=== PATIENT | female | born 1945 | race Caucasian/White ===

== ENCOUNTER 2022-10-29 09:01 | Outpatient (RCR) | payer MEDICARE, BC, SELFPAY ==
--- NOTE | 2022-10-29 12:04 | PT.OPEX ---
[facility] PT [facility] Out[facility] Eval Start: 10/29/22 09:41 Freq: Status: Active Protocol: Document 10/29/22 09:43 MAUDE (Rec: 10/29/22 11:59 MAUDE [id number]) E-signed By Howard Gonzales PT Physical Therapy Outpatient Evaluation Insurance Information Insurance Name Medicare B Medical Diagnosis Bilat. knee OA Treating Diagnosis Bilat. knee pain knee flexion contracture quad weakness Referring MD Samayoa Subjective Subjective Pt. reports progressive bilateral knee pain and dysfunction over the past couple of months. X-rays reveal significant OA, appropriate for TKA surgery, first on right, then on left in 6 months. She lives with her in one level [facility] without steps. She will be returning home following surgery with outpatient rehab in [place] planned. 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 PMH includes; diabetes, HTN, breast CA, and arthritis. Her goal is for full knee function without use of assistive device. 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 Strength 4/5 bilat. quad strength Balance & Gait Ambulation without assistive device with slowed gait and significant genu varus. Assessment Assessment/Impression Objectively, pt. demonstrates; slowed gait with genu varus present; 10-115 deg. of bilat. knee ROM with mild hamstring contracture; tightness of hamstrings and calves; 4/5 quad strength bilat; and core deconditioning. She would benefit from pre-op education of TKA process along with appropriate HEP instruction. Her right TKA surgery is scheduled for 11/12/22. She will have her post-op therapy in [place]. Primary Functional Limitations walking, kneeling, steps Plan of Care Rehabilitation Potential Excellent Physical Therapy Goals 1. Pt. will be indep. with HEP for self maintenance in 8 weeks. 2. Pt. will be able to walk without assistive device with little to no limp in 8 weeks. 3. Pt. will demonstrate improved quad and core strength in 8 weeks. 4. Pt. will demonstrate functional knee AROM to allow regular ADL's in 8 weeks. Coordination/Communication With Referral Source Treatment Plan/Direct Interventions Self-Care/Home Management, Therapeutic Activities, Therapeutic Exercises Frequency/Duration One visit then D/C at this clinic. Pt. will receive outpatient therapy following surgery in [place]. Patient Will Be Discharged From Therapy Independent w/HEP Evaluation Billing Complexity Low Certification Information Initial Certification Date 10/29/22 Ending Certification Date 10/30/22 Provider Signature Shows Agreement With POC & Medical Necessity Physician Signature & Date Requested Please Sign/Date Here Physician Comment/Change : Physician NPI Number #
== END 2023-02-26 23:59 | disposition home or self-care (01) ==
PROVIDERS: PCP Internal Medicine; Visit Provider Orthopaedic Surgery
DX: M17.0 Bilateral primary osteoarthritis of knee (principal); M25.562 Pain in left knee; M25.561 Pain in right knee; R53.1 Weakness; Z51.89 Encounter for other specified aftercare
CPT/HCPCS: 97110; 97161

== ENCOUNTER 2022-11-12 10:13 | Day surgery (SDC) | payer MEDICARE, BC, SELFPAY ==
[2022-11-12] VITALS (24 sets, daily range): BP systolic 105–171; BP diastolic 58–88; PULSE 54–79; RESP 14–20; TEMP 35.7–36.8; O2SAT 9–97; BMI 37.2
--- NOTE | 2022-11-12 | CRLHL7_ITS ---
For Patients: As a result of the Cures Act, medical imaging exams and procedure reports are released immediately into your electronic medical record. You may view this report before your referring provider. If you have questions, please contact your health care provider. INDICATION: Follow up right knee arthroplasty. TECHNIQUE: Two views of the right knee. COMPARISON : Pre-surgical images September 30, 2022. FINDINGS: New right total knee arthroplasty with patellar resurfacing. The components are adequately aligned and well seated. Air within the soft tissues and joint space related to the surgery. IMPRESSION: Right total knee arthroplasty. The components are adequately aligned and well seated. Dictated by Davis Goodman MD @ 11/13/2022 9:38:07 AM (Electronically Signed)
[2022-11-12] MEDS: SCOPOLAMINE 1 MG/3 DAY PATCH 1 PATCH TRANSDERMA (11:00)
[2022-11-12] MEDS: LACTATED RINGERS 1000 ML 1,000 ML 100 ML IV ×2 (11:30→12:28)
[2022-11-12] MEDS: SODIUM CHLORIDE 0.9 % (FLUSH) 10 ML SYRINGE IVF (11:30)
[2022-11-12] MEDS: CELECOXIB 200 MG CAPSULE PO (11:45)
[2022-11-12] MEDS: ACETAMINOPHEN 500 MG TABLET 1000 MG PO ×2 (11:45→18:05)
[2022-11-12] MEDS: MIDAZOLAM HCL 1 MG/ML inj IVP (11:58)
[2022-11-12] MEDS: fentaNYL 100 MCG/2 ML inj IVP (11:58)
--- NOTE | 2022-11-12 11:59 | SUR.PREOP ---
TIME?OUT:?1155 right knee PT/RN/MDA?VERIFICATION?OF?SURGICAL?SITE,?PROCEDURE,?AND?CONSENT OBTAINED?PRIOR?TO?INVASIVE?PROCEDURE.
[2022-11-12] MEDS: CEFAZOLIN 2 GM INJ IVP (12:10)
[2022-11-12] MEDS: TRANEXAMIC ACID 100 MG/ML INJ 1000 MG IV (12:15)
--- NOTE | 2022-11-12 13:44 | P.ORPRC_ITS ---
Procedure Note Date of procedure: 11/12/22 Procedure: PREOPERATIVE DIAGNOSIS: Right knee osteoarthritis POSTOPERATIVE DIAGNOSIS: Right knee osteoarthritis NAME OF OPERATION: Right total knee arthroplasty SURGEON: Myron Samayoa MD ELECTROLYSIST: ANGIE Tariq ANESTHESIA: Spinal ESTIMATED BLOOD LOSS: 0 mL COMPLICATIONS: None SPECIMENS: None DRAINS: None PREOPERATIVE ANTIBIOTICS: Ancef 2 grams, antibiotic impregnated cement IMPLANTS: 1. J&J Attune # 6 narrow posterior stabilized femur 2. # 5 fixed-bearing tibia with a 14 mm x 50 mm cemented stem 3. #6 posterior stabilized, 5 mm fixed-bearing polyethylene 4. 38 patella INDICATIONS: The patient is a 77-year-old with a longstanding history of severe, unrelenting right knee pain secondary to end-stage (grade IV) right knee osteoarthritis. Despite appropriate nonoperative management, including activity modification, anti-inflammatories, bggj-qnr-fwdluzk pain medication, bracing, physical therapy, and injections they continue to have pain and disability. Operative intervention was offered. The risks, benefits and expected outcomes were discussed in detail. These included but were not limited to: Infection, bleeding, injury to blood vessel or nerve, venous thromboembolism. All questions were answered to their satisfaction. Use of an business office assistant was necessary throughout the case for patient positioning and safety, soft tissue retraction, and closure. A modifier 22 should be added to this case. Extra time was taken during the case to balance the soft tissues correctly. This meant we recut both the femur and the tibia. Extra posterior soft tissue releases and osteophyte resection were done to get the knee to full extension. This more than doubled the time typically required to complete the case. PROCEDURE: Spinal anesthesia was administered. The patient was placed supine on the operating table. The business office assistant made sure the patient was positioned appropriately. The lower extremity was prepped and draped in the usual sterile fashion. The limb was exsanguinated with the Gilson bandage. The pneumatic t ourniquet was inflated to 300 mmHg. A standard anterior incision was made with the knee in flexion. Subcutaneous dissection was sharply taken through fascial layer #1. Full-thickness medial and lateral flaps were elevated. The business office assistant retracted the soft tissues and protected them throughout the case. A standard medial parapatellar approach was made. The patella was everted. The infrapatellar fat pad was preserved. The menisci and cruciate ligaments were sharply d?brided. Marginal osteophytes were d?brided with the rongeur. The drill was used to penetrate the femoral canal. The canal was aspirated and irrigated with pulse lavage. The intramedullary femoral guide was placed for a 5-degree valgus cut, removing 10 mm off the distal femur. The saw was used to make the cut. Attention was then turned to the proximal tibia. The extramedullary tibial guide was placed for a neutral varus/valgus cut with 5 degrees of posterior slope, removing 1 mm based off the medial tibial surface. The business office assistant protected the collateral ligaments and the neurovascular bundle. The saw was used to make the cut. The dog bone was placed. The knee would not come to full extension. Therefore, we replaced the distal femoral cutting guide, advancing it 2 more mm distally. The saw was used to take 2 more mm off the distal femur. Whitesides line and the trans epicondylar axis were marked. The femoral sizing guide was pinned onto the distal femur. Three degrees of external rotation nicely parallels the transepicondylar axis. Pins were placed for posterior referencing. The four-in-one cutting guide was pinned onto the distal femur. The anterior, posterior, and chamfer cuts were made. The business office assistant protected the collateral ligaments. The box cutting guide was pinned. The box cuts were made. The boxed trial was placed and was an excellent fit. Drill holes for the lugs were made. Trial components were placed. The knee was nicely balanced in both flexion and extension. The revision tibial tray was pinned onto the proximal tibia. The long and short drills were used. The punch was used, the tray was removed, the punch was used again. The stemmed trial tibial component was placed and was an excellent fit. The trial components were removed. We placed a bone plug in the femoral canal. Attention was then turned to the patella. [place] patellar thickness was 17 mm over the lateral facet, with significant bone loss. The lobster claw resection guide was used with the 7.5 mm michael with the saw blade used as an extra michael . The saw was used to make the cut. We used the saw to freehand the cut, removing several more mm, leaving 13 mm of [place] patella. Drill holes were made by the business office assistant. The trial was placed and was an excellent fit. Cancellous surfaces were irrigated with pulse lavage and thoroughly dried by the business office assistant. We cemented the tibial component, then the femoral component. We impacted the 5 mm polyethylene onto the tibial tray. The knee was brought into full extension. We then cemented the patellar component. Excessive cement was removed. The cement was allowed to harden. The knee was taken through a range of motion and was found to be nicely balanced in both flexion and extension. The patella tracks centrally. The business office assistant did a three minute dilute Betadine solution soak. The business office assistant irrigated the wound with 3 liters of normal saline via pulse lavage. The business office assistant reapproximated the extensor mechanism with #1 Vicryl in an interrupted hfuoag-tj-gduxg fashion. The business office assistant then ran the extensor mechanism with a #1 PDO Stratafix. The business office assistant closed the subcutaneous tissues with a 3-0 Stratafix and the skin with a running 3-0 Stratafix in a subcuticular fashion. Glue was used to seal the skin. The business office assistant placed a dry dressing, RICKI stocking, and Polar Care. Sponge and needle counts were correct x2. The patient tolerated the procedure well. There were no apparent complications. They were carefully transferred to the hospital bed and taken to the postanesthesia care unit in satisfactory condition. PLAN: The patient will be mobilized with physical therapy. Aspirin will be used for DVT prophylaxis. They will be discharged to home once medically appropriate.
--- NOTE | 2022-11-12 14:24 | W.ANESCHARGE ---
Anesthesia Charges Start Date/Time Anesthesia Start Date: 11/12/22 Anesthesia Start Time: 12:04 Stop Date/Time Anesthesia Stop Date: 11/12/22 Anesthesia Stop Time: 14:25
--- NOTE | 2022-11-12 14:37 | W.ANESCHARGE ---
Anesthesia Charges Start Date/Time Anesthesia Start Date: 11/12/22 Anesthesia Start Time: 12:04 Stop Date/Time Anesthesia Stop Date: 11/12/22 Anesthesia Stop Time: 14:25 Summary Extremes of Age - Over 70 or under 1: MDA
--- NOTE | 2022-11-12 14:38 | P.NB_ITS ---
Nerve Block Nerve Block Time Seen by Provider: 12:58 Date Seen: 11/12/22 Type of block requested by surgeon for post-operative analgesia: adductor canal Side: right Time out performed: Yes Verification of patient name: Yes Verification of date of : Yes Site marking: site marked Name of person performing procedure: Sherman Continuous monitoring Was continuous monitoring of O2 sat, B/P, quality assurance monitor chassis, recorded every 15 minutes?: Yes Procedure Checklist: sterile prep, needles and gloves Ultrasound guided. Images saved: Yes Medications given in 5ml increments after negative aspiration: Ropivicaine %: 0.5 mL: 20 Needle gauge: 20 Decadron (mg): 10 Precedex (mcg): 25 Patient tolerated procedure well: Yes Additional comments: Needle noted adjacent to nerve Block Charges Block Charge (with Pro Fee): Femoral Nerve Use of Ultrasound Machine for Block: Yes- US Guidance/pain block
--- NOTE | 2022-11-12 14:38 | W.PM.NB ---
Nerve Block Nerve Block Time Seen by Provider: 12:58 Date Seen: 11/12/22 Type of block requested by surgeon for post-operative analgesia: geniculars Side: right Time out performed: Yes Verification of patient name: Yes Verification of date of : Yes Site marking: site marked Name of person performing procedure: Sherman Continuous monitoring Was continuous monitoring of O2 sat, B/P, flame gouger, recorded every 15 minutes?: Yes Procedure Checklist: sterile prep, needles and gloves Medications given in 5ml increments after negative aspiration: Ropivicaine %: 0.5 mL: 9 Needle gauge: 25 Patient tolerated procedure well: Yes Block Charges Block Charge (with Pro Fee): Genicular Nerve Block Use of Ultrasound Machine for Block: No
[2022-11-12] MEDS: fentaNYL 100 MCG/2 ML inj 50 MCG IVP ×2 (14:47→14:52)
[2022-11-12] MEDS: LACTATED RINGERS 1000 ML 1,000 ML 75 ML IV (15:15)
--- NOTE | 2022-11-12 16:57 | P.IMCN_ITS ---
Date of Consult Patient: Maryann Patient Consult date: 11/12/22 Requesting Physician: Orthopedics Primary Care Provider: Vicki Yanez MD Consult Narrative Reason for consult: Postop care DMT2, HTN, HLD, kidney stones Narrative: Gina Salguero is a 77 year old woman successfully undergoes an elective right total knee arthroplasty for severe, end-stage right gonarthrosis today without any complications. Efforts to address this without surgical intervention have not been sufficient or lasting. Review of Systems Status of ROS: Reports: 10 or more systems reviewed and unremarkable except as noted in History and below Narrative: Blood sugars have been in the 180-200 range up until a couple of weeks ago when her dose of glipizide was increased from 5 mg daily to 10 mg daily. Since then her blood sugars have been in the 140-160 range. Denies hypoglycemic or hyperglycemic episodes. Blood pressures have been adequately managed. Does have recurrent calcium oxalate kidney stones. Has not had recurrence for a while. Informs me that she has never been instructed on measures she can take to try to prevent recurrent formation of stones. Has never had a workup for this. Does not monitor urine output. Does not limit her sodium intake. Does take hydrochlorothiazide for her hypertension. On no other medications to try to prevent recurrence of stone. [facility] Medical History (Updated 11/12/22 @ 17:27 by Cuong Gallegos MD) Endometrial polyp ?N84.0 - Polyp of corpus uteri (ICD-10) GERD (gastroesophageal reflux disease) ?K21.9 - Gastro-esophageal reflux disease without esophagitis (ICD-10) Hypertension ?I10 - Essential (primary) hypertension (ICD-10) Recurrent kidney stones ?N20.0 - Calculus of kidney (ICD-10) Breast cancer ?C50.919 - Malignant neoplasm of unspecified site of unspecified female breast (ICD-10) Type 2 diabetes mellitus ?E11.9 - Type 2 diabetes mellitus without complications (ICD-10) Surgical History (Updated 11/12/22 @ 17:27 by Cuong Gallegos MD) H/O colonoscopy ?Z98.890 - Other specified postprocedural states (ICD-10) History of section ?Z98.891 - History of uterine scar from previous surgery (ICD-10) Status post laparotomy with lysis of adhesions ?Z98.890 - Other specified postprocedural states (ICD-10) Status post cystoscopy with ureteral stent placement ?Z96.0 - Presence of urogenital implants (ICD-10) History of ureteroscopy ?Z98.890 - Other specified postprocedural states (ICD-10) History of lithotripsy ?Z98.890 - Other specified postprocedural states (ICD-10) History of cholecystectomy ?Z90.49 - Acquired absence of other specified parts of digestive tract (ICD- 10) H/O bilateral mastectomy ?Z90.13 - Acquired absence of bilateral breasts and nipples (ICD-10) H/O total hysterectomy with bilateral salpingo-oophorectomy (BSO) ?Z90.710 - Acquired absence of both cervix and uterus (ICD-10) ?Z90.722 - Acquired absence of ovaries, bilateral (ICD-10) ?Z90.79 - Acquired absence of other genital organ(s) (ICD-10) History of appendectomy ?Z90.49 - Acquired absence of other specified parts of digestive tract (ICD- 10) History of arthroscopy of right shoulder (~2014) ?Z98.890 - Other specified postprocedural states (ICD-10) Family History Mother Breast cancer Diabetes Osteoarthritis Sister Breast cancer Osteoarthritis Lung cancer Maternal Grandmother Breast cancer Brother Osteoarthritis ETOH abuse Social History (Updated 11/12/22 @ 16:57 by Cuong Gallegos MD) Narrative: to Alexis. 1 daughter. 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 Designates , Alexis, as POA for health. Full resuscitation in event of cardiopulmonary demise. PCP, Dr. Vicki Yanez. Highest level of school completed/degree received: don't know Smoking Status: Never smoker Do you use any of these nicotine containing products: None Second hand tobacco smoke exposure: No How often do you have a drink containing alcohol: monthly or less Alcohol type: hard liquor AUDIT-C Alcohol total score: 1 Non-prescribed substance use: denies use Caffeine: No Are you now , , , , never or living with a partner: Social isolation score (0-1 are the most socially isolated patients): 1 Meds Home Medications and Allergies Home Medications Medication Instructions Recorded Confirmed Type aspirin 81 mg tablet,delayed 81 mg PO QDAY 09/30/22 11/12/22 History release atenolol 50 mg tablet 50 mg PO DAILY 09/30/22 11/12/22 History glucosamine 750 uk-ywdurxnwlpx-idt 2 tab PO QDAY 09/30/22 11/12/22 History no1 644 mg-C 30 mg-jhon 1 mg tablet (Osteo Bi-Flex Triple Strength) hydrochlorothiazide 25 mg tablet 25 mg PO DAILY 09/30/22 11/12/22 History losartan 100 mg tablet 100 mg PO DAILY 09/30/22 11/12/22 History omeprazole 20 mg capsule,delayed 20 mg PO DAILY 09/30/22 11/12/22 History release glipizide 10 mg tablet, extended 10 mg PO DAILY 11/12/22 11/12/22 History release 24 hr multivitamin (Daily Multi-Vitamin 1 tab PO DAILY 11/12/22 11/12/22 History tablet) naproxen sodium 220 mg tablet 220 mg PO BID PRN 11/12/22 11/12/22 History (Aleve) Allergies Allergy/AdvReac Type Severity Reaction Status Date / Time Sulfa (Sulfonamide Allergy Mild Rash Verified 11/12/22 10:40 Antibiotics) metformin Allergy Verified 11/11/22 09:54 nickel Allergy Rash Verified 11/12/22 10:39 Exam Narrative: Exam Narrative: I examine her postoperatively in the medical-surgical floor as she is laying in a semi recumbent position in her hospital bed. She appears comfortable and in no acute distress. She is very hard of hearing. Nevertheless she can engage in conversation with great effort on her part and on my part. Vision is grossly intact. Alert and oriented to self, place, time, situation. Friendly, articulate, cooperative. Mood and affect are congruent. Aside from decreased hearing, cranial nerves 3-12 are grossly normal. Neck is supple. Midline trachea. No JVD or hepatojugular reflux. No carotid bruits. Heart tones with regular rhythm, normal S1-S2, without murmur, gallop, or rub. Lungs are clear to auscultation without wheezing, rhonchi, or rales. Abdomen with active bowel sounds, soft, nontender. Moves all 4 extremities. Const: Vital Signs, click to edit/add: Vital Signs - 24 hr 11/12/22 10:59 11/12/22 12:00 11/12/22 14:20 Temperature 98.3 F 97.2 F L Pulse Rate 70 67 63 Pulse Rate [Left P ulse Oximeter] Respiratory Rate 16 20 14 Blood Pressure 153/73 H 160/78 H 105/63 Blood Pressure [Ri ght Arm] Pulse Oximetry 92 9 L 94 Oxygen Delivery Me thod Nasal Cannula Room Air Oxygen Flow Rate 2 11/12/22 14:25 11/12/22 14:30 11/12/22 14:35 Temperature 97.0 F L Pulse Rate 62 62 63 Pulse Rate [Left P ulse Oximeter] Respiratory Rate 14 18 18 Blood Pressure 106/63 119/66 117/66 Blood Pressure [Ri ght Arm] Pulse Oximetry 93 94 94 Oxygen Delivery Me thod Room Air Oxygen Flow Rate 11/12/22 14:40 11/12/22 14:45 11/12/22 14:50 Temperature 97.2 F L Pulse Rate 55 L 56 L 54 L Pulse Rate [Left P ulse Oximeter] Respiratory Rate 18 14 14 Blood Pressure 118/60 125/67 125/62 Blood Pressure [Ri ght Arm] Pulse Oximetry 96 96 94 Oxygen Delivery Me thod Room Air Oxygen Flow Rate 11/12/22 14:55 11/12/22 15:00 11/12/22 15:05 Temperature 97.3 F L Pulse Rate 59 L 60 57 L Pulse Rate [Left P ulse Oximeter] Respiratory Rate 16 16 14 Blood Pressure 130/64 125/76 138/88 Blood Pressure [Ri ght Arm] Pulse Oximetry 94 94 97 Oxygen Delivery Me thod Room Air Oxygen Flow Rate 11/12/22 15:30 11/12/22 15:45 11/12/22 16:00 Temperature 96.2 F L 96.5 F L 96.5 F L Pulse Rate 54 L Pulse Rate [Left P ulse Oximeter] 55 L 56 L Respiratory Rate 18 18 18 Blood Pressure Blood Pressure [Ri ght Arm] 138/70 123/77 127/72 Pulse Oximetry 94 97 Oxygen Delivery Me thod Room Air Room Air Room Air Oxygen Flow Rate 11/12/22 16:15 11/12/22 16:30 Temperature 96.9 F L 96.9 F L Pulse Rate Pulse Rate [Left P ulse Oximeter] 65 63 Respiratory Rate 18 18 Blood Pressure Blood Pressure [Ri ght Arm] 141/66 H 115/76 Pulse Oximetry 90 91 Oxygen Delivery Me thod Room Air Room Air Oxygen Flow Rate Documenting provider has reviewed patient's vital signs: yes Assessment and Plan Assessment and plan (1) Osteoarthritis of right knee: Status: Acute (2) Status post right knee replacement: Status: Acute (3) Hypertension: Status: Acute (4) Type 2 diabetes mellitus: Status: Acute (5) GERD (gastroesophageal reflux disease): Status: Acute (6) Recurrent kidney stones: Problem comment: 100+ stones over her lifetime. Recurrent calcium oxalate stones. Status: Acute Plan 1. Reviewed impression with patient and daughter. Answered their questions. 2. Continue with the glipizide. Add sliding scale aspart insulin while in hospital. 3. Continue with antihypertensive measures. 4. Patient tells us she is no longer taking the atorvastatin. We stop this. 5. Continue with other supportive medications. 6. Long discussion with her and her daughter regarding the recurrent calcium oxalate stones. Gave patient and daughter information about this, and particularly discussed efforts to try to urinate a minimum of 2 L of urine daily, limit sodium intake to 2 g daily, continue on the hydrochlorothiazide for now. Recommended that she discuss this with her primary care physician and consider consultation with specialist directed toward efforts to lower her risk of recurrent calcium oxalate kidney stones. 8. Agree with postoperative venous thromboembolism prophylaxis efforts. 9. Agree with perioperative antibiotic prophylaxis efforts. 10. I have completed portion of the patient's discharge pertaining to her medical conditions. Hospitalist will follow while patient is in the hospital as needed. 11. Patient and daughter agreeable with above stated plans and recommendations.
[2022-11-12] MEDS: CEFAZOLIN 2 GM in 0.9 % SODIUM CHLORIDE Mini-bag 100 ML IVPB (18:05)
[2022-11-12] MEDS: SENNOSIDES 1 TAB TABLET 2 TAB PO (20:51)
[2022-11-12] MEDS: ASPIRIN 81 MG TABLET EC PO (20:59)
--- NOTE | 2022-11-12 21:35 | PC.NURSE ---
Pt alert and oriented. Pt arrived to floor from surgery around 1530. Pt pleasant and talkative. Pt had no complaints of pain. Pt was advanced to regular diet and tolerated well. Pt had adequate intake and output. Pt up with SBA with walker and gait belt. VSS. Pt?s blood glucose levels were 1700-209 and 2100-306 see EMAR for insulin dosage. Dressing dry and intact.? ?
[2022-11-13] MEDS: ACETAMINOPHEN 500 MG TABLET 1000 MG PO ×2 (00:38→06:04)
[2022-11-13 03:00] VITALS: BP 121/65; PULSE 61; RESP 16; TEMP 36.5; O2SAT 92
[2022-11-13] MEDS: CEFAZOLIN 2 GM in 0.9 % SODIUM CHLORIDE Mini-bag 100 ML IVPB (04:20)
[2022-11-13] MEDS: OMEPRAZOLE 20 MG CAPSULE DR PO (06:04)
[2022-11-13 06:42] LABS: Basophils Percent Auto 0.1 % (0.0-3.0); Hematocrit 36.6 % (33.0-51.0); Hemoglobin* 12.2 gm/dL (12.0-16.0); Immature Granulocytes Pct Auto 0.3 %; Lymphocytes Percent Auto 6.7 % (20-44); Mean Corpuscular HGB Conc 33 gm/dL (32-36); Mean Corpuscular Hemoglobin 30 pg (26-34); Mean Corpuscular Volume 89 fL (80-100); Monocytes Percent Auto 6.7 % (0.0-11.0); Neutrophils Percent Auto 86.2 % (42.0-72.0); Platelet Count* 244 K/uL (140-440); Red Blood Count 4.11 m/uL (4.00-5.20); White Blood Count* 13.12 K/uL (4.50-11.00)
[2022-11-13 06:44] LABS: Slide Review Reflex No
[2022-11-13 06:57] LABS: INR 1.02 (0.91-1.10); Prothrombin Time 14.1 Seconds
[2022-11-13 06:58] LABS: Sodium* 138 mmol/L (135-149)
[2022-11-13 06:59] LABS: Potassium* 3.9 mmol/L (3.6-5.1)
[2022-11-13 07:00] VITALS: BP 149/66; PULSE 75; RESP 18; TEMP 36.7; O2SAT 94
[2022-11-13 07:01] LABS: Creatinine* 0.7 mg/dL (0.5-1.5); Est. Creatinine Clearance* 38.44; Estimated Glomerular Filt Rate 90 ml/min
[2022-11-13 07:02] LABS: Blood Urea Nitrogen* 25 mg/dL (7-30)
[2022-11-13] MEDS: glipiZIDE XL 5 MG TAB 10 MG PO (08:30)
[2022-11-13] MEDS: LOSARTAN POTASSIUM 50 MG TABLET 100 MG PO (08:30)
[2022-11-13] MEDS: hydroCHLOROthiazide 25 MG TABLET PO (08:31)
[2022-11-13] MEDS: SENNOSIDES 1 TAB TABLET 2 TAB PO (08:31)
[2022-11-13] MEDS: ASPIRIN 81 MG TABLET EC PO (08:31)
[2022-11-13] MEDS: atenoloL 50 MG TABLET PO (08:32)
[2022-11-13] MEDS: OXYCODONE 5 MG TABLET PO (08:32)
--- NOTE | 2022-11-13 09:03 | PM.ORPN ---
Subjective Subjective Time Seen by Provider: 07:10 Date Seen: 11/13/22 Principal diagnosis: Status post right knee replacement Interval history: Gina is doing well this morning. She will discharge to home today. Ortho Exam Narrative Exam Narrative: Alert and oriented x3. Patient is in no acute distress. Converses without labored breathing. Hearing is grossly intact. Ambulates with a walker. Examination of the right knee shows dressing is intact. Effusion is present. Mild soft tissue edema about the right knee. CMS to the right lower extremity is intact. Bilateral calves are soft nontender. Good quad strength. Const Vital Signs, click to edit/add: Vital Signs - 24 hr 11/12/22 10:59 11/12/22 12:00 11/12/22 14:20 Temperature 98.3 F 97.2 F L Pulse Rate 70 67 63 Pulse Rate [Left Pulse Oximeter] Respiratory Rate 16 20 14 Blood Pressure 153/73 H 160/78 H 105/63 Blood Pressure [Right Arm] Pulse Oximetry 92 9 L 94 Oxygen Delivery Method Nasal Cannula Room Air Oxygen Flow Rate 2 11/12/22 14:25 11/12/22 14:30 11/12/22 14:35 Temperature 97.0 F L Pulse Rate 62 62 63 Pulse Rate [Left Pulse Oximeter] Respiratory Rate 14 18 18 Blood Pressure 106/63 119/66 117/66 Blood Pressure [Right Arm] Pulse Oximetry 93 94 94 Oxygen Delivery Method Room Air Oxygen Flow Rate 11/12/22 14:40 11/12/22 14:45 11/12/22 14:50 Temperature 97.2 F L Pulse Rate 55 L 56 L 54 L Pulse Rate [Left Pulse Oximeter] Respiratory Rate 18 14 14 Blood Pressure 118/60 125/67 125/62 Blood Pressure [Right Arm] Pulse Oximetry 96 96 94 Oxygen Delivery Method Room Air Oxygen Flow Rate 11/12/22 14:55 11/12/22 15:00 11/12/22 15:05 Temperature 97.3 F L Pulse Rate 59 L 60 57 L Pulse Rate [Left Pulse Oximeter] Respiratory Rate 16 16 14 Blood Pressure 130/64 125/76 138/88 Blood Pressure [Right Arm] Pulse Oximetry 94 94 97 Oxygen Delivery Method Room Air Oxygen Flow Rate 11/12/22 15:30 11/12/22 15:45 11/12/22 16:00 Temperature 96.2 F L 96.5 F L 96.5 F L Pulse Rate 54 L Pulse Rate [Left Pulse Oximeter] 55 L 56 L Respiratory Rate 18 18 18 Blood Pressure Blood Pressure [Right Arm] 138/70 123/77 127/72 Pulse Oximetry 94 97 Oxygen Delivery Method Room Air Room Air Room Air Oxygen Flow Rate 11/12/22 16:15 11/12/22 16:30 11/12/22 17:00 Temperature 96.9 F L 96.9 F L 97.0 F L Pulse Rate Pulse Rate [Left Pulse Oximeter] 65 63 59 L Respiratory Rate 18 18 18 Blood Pressure Blood Pressure [Right Arm] 141/66 H 115/76 152/70 H Pulse Oximetry 90 91 97 Oxygen Delivery Method Room Air Room Air Room Air Oxygen Flow Rate 11/12/22 17:30 11/12/22 18:30 11/12/22 19:30 Temperature 97.1 F L 97.7 F 97.8 F Pulse Rate Pulse Rate [Left Pulse Oximeter] 71 79 70 Respiratory Rate 18 16 16 Blood Pressure Blood Pressure [Right Arm] 151/79 H 171/86 H 151/73 H Pulse Oximetry 96 95 92 Oxygen Delivery Method Room Air Room Air Room Air Oxygen Flow Rate 0 0 0 11/12/22 20:30 11/12/22 21:30 11/12/22 23:00 Temperature 97.6 F 97.8 F Pulse Rate Pulse Rate [Left Pulse Oximeter] 68 68 Respiratory Rate 16 16 Blood Pressure Blood Pressure [Right Arm] 154/75 H 146/75 H Pulse Oximetry 92 92 92 Oxygen Delivery Method Room Air Room Air Oxygen Flow Rate 0 0 11/12/22 23:00 11/12/22 23:00 11/13/22 03:00 Temperature 97.8 F 97.7 F Pulse Rate Pulse Rate [Left Pulse Oximeter] 60 61 Respiratory Rate 16 16 16 Blood Pressure Blood Pressure [Right Arm] 124/58 L 121/65 Pulse Oximetry 92 92 92 Oxygen Delivery Method Room Air Room Air Room Air Oxygen Flow Rate 0 0 0 Assessment and Plan Assessment and plan (1) Status post right knee replacement: Problem details: 11/12/2022 Status: Acute Assessment and Plan: Plan for discharge is today to home if they meet discharge criteria. DVT prophylaxis includes aspirin 81 mg twice daily x1 month, Ken stockings x1 month may remove for 1 hr per day, frequent ambulation Remove dressing in 1 week. Observe wound and phone Orthopedics with any questions or concerns Return to clinic in 1 week for a wound check Return to clinic in [address] Samayoa Minimize narcotic use. Wean off and discontinue soon as possible. Activities as tolerated. No strenuous activity. Outpatient physical therapy as scheduled. Ice and elevate the operative extremity. No restriction on ice. (2) Hypertension: Status: Acute (3) Type 2 diabetes mellitus: Status: Acute (4) GERD (gastroesophageal reflux disease): Status: Acute (5) Recurrent kidney stones: Problem details: 100+ stones over her lifetime. Recurrent calcium oxalate stones. Status: Acute
--- NOTE | 2022-11-13 12:37 | PC.NURSE ---
Discharge note: Pt friendly and cooperative, able to verbalize needs. Rates pain 1/10 and ambulates well with SBA with GB and walker. Pt given 5mg Oxycodone prior to PT. Vs WNL and LS COA. Surgical dressing C,D,&I with cryocuff in place. Pt was discharged to home in the care of her daughter via wheelchair at 1200. Pt and daughter verbalized understanding of discharge instructions and follow up appointments.
== END 2022-11-13 12:39 | disposition home or self-care (01) ==
LOC: OR 10:14 → MEDSURG 10:17
PROVIDERS: PCP Internal Medicine; Visit Provider Orthopaedic Surgery
PROC: (CPT 27447; principal; 2022-11-12 12:30)
DX: M17.11 Unilateral primary osteoarthritis, right knee (principal); G89.18 Other acute postprocedural pain; E11.9 Type 2 diabetes mellitus without complications; I10 Essential (primary) hypertension; K21.9 Gastro-esophageal reflux disease without esophagitis; N20.0 Calculus of kidney; Z87.442 Personal history of urinary calculi
CPT/HCPCS: 27447; 01402; 36415; 64447; 64454; 73560; 76942; 82565; 82962; 84132; 84295; 84520; 85025; 85610; 97110; 97116; 97161; 97165; 97530; 99100; A9270; C1776; J0690; J1100; J2250; J2405; J2704; J3010; J7120

== ENCOUNTER 2023-01-07 17:41 | Outpatient (CLI) | payer MEDICARE, BC, SELFPAY ==
--- NOTE | 2023-01-07 17:51 | CRLHL7_ITS ---
For Patients: As a result of the Century Cures Act, medical imaging exams and procedure reports are released immediately into your electronic medical record. You may view this report before your referring provider. If you have questions, please contact your health care provider. INDICATION: RIGHT LEG PAIN COMPARISON: None. TECHNIQUE: A compression venous ultrasound exam was performed of the right lower extremity using somers-scale imaging, color Doppler and spectral Doppler analysis. FINDINGS: Sonographic imaging of the right lower extremity demonstrates normal compressibility and color Doppler venous blood flow within the common femoral vein, deep femoral vein, and the proximal greater saphenous vein. Within the thigh, the femoral vein is patent and compressible. At a lower level, the popliteal and posterior tibial veins also show normal compressibility and color Doppler venous blood flow. Limited imaging of the contralateral groin demonstrates a normal spectral waveform and color Doppler venous blood flow within the left common femoral vein. IMPRESSION: Normal venous ultrasound exam. No evidence of deep vein thrombosis within the right lower extremity. Dictated by Rohan Perla MD @ 01/08/2023 9:17:41 AM (Electronically Signed)
== END 2023-01-07 17:42 | disposition home or self-care (01) ==
PROVIDERS: PCP Internal Medicine; Visit Provider Physician Assistant Surgical
DX: M79.604 Pain in right leg (principal); Z96.651 Presence of right artificial knee joint
CPT/HCPCS: 93971

== ENCOUNTER 2023-07-01 07:00 | Day surgery (SDC) | payer MEDICARE, BC, SELFPAY ==
[2023-07-01] VITALS (21 sets, daily range): BP systolic 124–170; BP diastolic 63–93; PULSE 62–93; RESP 16–18; TEMP 35.8–36.9; O2SAT 91–99; BMI 34.4
[2023-07-01] MEDS: ACETAMINOPHEN 500 MG TABLET 1000 MG PO (07:16)
[2023-07-01] MEDS: CELECOXIB 200 MG CAPSULE PO (07:16)
[2023-07-01] MEDS: LACTATED RINGERS 1000 ML 1,000 ML 100 ML IV ×2 (07:30→09:33)
[2023-07-01] MEDS: SODIUM CHLORIDE 0.9 % (FLUSH) 10 ML SYRINGE IVF (07:30)
[2023-07-01] MEDS: fentaNYL 100 MCG/2 ML inj IVP (08:17)
[2023-07-01] MEDS: MIDAZOLAM HCL 1 MG/ML inj IVP (08:17)
--- NOTE | 2023-07-01 08:30 | SUR.PREOP ---
TIME?OUT:?0817 PT/Rashaun NEVILLE RN/Malcolm MURGUIA MDA?VERIFICATION?OF?SURGICAL?SITE,?PROCEDURE,?AND?CONSENT OBTAINED?PRIOR?TO?INVASIVE?PROCEDURE.
--- NOTE | 2023-07-01 08:44 | SUR.OPER ---
PATIENT QUESTIONS ANSWERED SATISFACTORILY PREOPERATIVELY.? PATIENT BROUGHT TO OR #3 PER CART AFTER ADMINISTRATION OF A BLOCK.? Patient positioned supine on OR #3 bed.? The perioperative?team supported arms bilaterally on arm boards.? Final approval of positioning by surgeon.?
[2023-07-01] MEDS: CEFAZOLIN 2 GM INJ IVP (09:31)
[2023-07-01] MEDS: TRANEXAMIC ACID 100 MG/ML INJ 1000 MG IV (09:32)
--- NOTE | 2023-07-01 10:42 | XR_ITS ---
Patient: NATALI WILKINS Facility:?[facility] Patient ID:?[id number] Site Patient ID:?[id number]. Site :?[id number] Study:?XRay-Extremity Left KNEE 2V-07/01/2023 11:43:53 AM Ordering Physician:ANABEL Final Report: Indication: POST OP TKA Technique: Two views left knee Findings/Impression: Hardware from a left total knee arthroplasty is in satisfactory position. Bone alignment is normal. No sign of acute fracture. Postop changes are within normal limits. Dictated by Rohan Perla MD @ 07/01/2023 12:07:35 PM Signed by:?Rohan Perla MD @07/01/2023 12:07:35 PM (Electronic Signature)
--- NOTE | 2023-07-01 10:44 | P.ORPRC_ITS ---
Procedure Note Date of procedure: 07/01/23 Procedure: PREOPERATIVE DIAGNOSIS: Left knee osteoarthritis POSTOPERATIVE DIAGNOSIS: Left knee osteoarthritis NAME OF OPERATION: Left total knee arthroplasty SURGEON: Myron Samayoa MD PHYSICAL SCIENCE TECHNICIAN: ANGIE Tariq ANESTHESIA: Spinal ESTIMATED BLOOD LOSS: 0 mL COMPLICATIONS: None SPECIMENS: None DRAINS: None PREOPERATIVE ANTIBIOTICS: Ancef 2 grams, antibiotic impregnated cement IMPLANTS: 1. J&J Attune # 6 narrow posterior stabilized femur 2. # 5 revision CRS fixed-bearing tibia, with a 14 mm x 50 mm cemented stem 3. #6 posterior stabilized, 5 mm fixed-bearing polyethylene 4. 38 patella INDICATIONS: The patient is a 77-year-old with a longstanding history of severe, unrelenting left knee pain secondary to end-stage (grade IV) left knee osteoarthritis. Despite appropriate nonoperative management, including activity modification, anti-inflammatories, cdbi-wrc-gzeizox pain medication, bracing, physical therapy, and injections they continue to have pain and disability. Operative intervention was offered. The risks, benefits and expected outcomes were discussed in detail. These included but were not limited to: Infection, bleeding, injury to blood vessel or nerve, venous thromboembolism. All questions were answered to their satisfaction. Use of an construction management assistant was necessary throughout the case for patient positioning and safety, soft tissue retraction, and closure. PROCEDURE: Spinal anesthesia was administered. The patient was placed supine on the operating table. The construction management assistant made sure the patient was positioned appropriately. The lower extremity was prepped and draped in the usual sterile fashion. The limb was exsanguinated with the Gilson bandage. The pneumatic tourniquet was inflated to 300 mmHg. A standard anterior incision was made with the knee in flexion. Subcutaneous dissection was sharply taken through fascial layer #1. Full-thickness medial and lateral flaps were elevated. The construction management assistant retracted the soft tissues and protected them throughout the case. A standard subvastus approach was made. The patella was subluxed. The infrapatellar fat pad was preserved. The menisci and cruciate ligaments were sharply d?brided. Marginal osteophytes were d?brided with the rongeur. The drill was used to penetrate the femoral canal. The canal was aspirated and irrigated with pulse lavage. The intramedullary femoral guide was placed for a 5-degree valgus cut, removing 10 mm off the distal femur. The saw was used to make the cut. Whitesides line and the trans epicondylar axis were marked. The femoral sizing guide was pinned onto the distal femur. Three degrees of external rotation nicely parallels the transepicondylar axis. Pins were placed for posterior referencing. The four-in-one cutting guide was pinned onto the distal femur. The anterior, posterior, and chamfer cuts were made. The construction management assistant protected the collateral ligaments. The box cutting guide was pinned. The box cuts were made. The boxed trial was placed and was an excellent fit. Drill holes for the lugs were made. Attention was then turned to the proximal tibia. The extramedullary tibial guide was placed for a neutral varus/valgus cut with 5 degrees of posterior slope, removing 2 mm based off the medial tibial surface. The construction management assistant protected the collateral ligaments and the neurovascular bundle. The saw was used to make the cut. Trial components were placed. The knee was nicely balanced in both flexion and extension. The trial components were removed. The tray was placed in appropriate rotation, parallel to our tibial cutting pins. It was pinned by the construction management assistant and the drill x2 was used. The stemmed tibial trial was placed. The punch was used. The tray was removed. The punch was used again. A bone plug was placed in the femoral canal. Attention was then turned to the patella. [place] patellar thickness was 21 mm. The lobster claw resection guide was used with the 7.5 mm michael. The saw was used to make the cut. Drill holes were made by the construction management assistant. The trial was placed and was an excellent fit. Cancellous surfaces were irrigated with pulse lavage and thoroughly dried by the construction management assistant. We cemented the tibial component, then the femoral component. We impacted the 5 mm polyethylene onto the tibial tray. The knee was brought into full extension. We then cemented the patellar component. Excessive cement was removed. The cement was allowed to harden. The knee was taken through a range of motion and was found to be nicely balanced in both flexion and extension. The patella tracks centrally. The construction management assistant did a three minute dilute Betadine solution soak. The construction management assistant irrigated the wound with 3 liters of normal saline via pulse lavage. The construction management assistant reapproximated the extensor mechanism with #1 Vicryl in an interrupted cknrul-ih-gdxau fashion. The construction management assistant then ran the extensor mechanism with a #1 PDO Stratafix. The construction management assistant closed the subcutaneous tissues with a 3-0 Stratafix and the skin with a running 3-0 Stratafix in a subcuticular fashion. Glue was used to seal the skin. The construction management assistant placed a dry dressing, RICKI stocking, and Polar Care. Sponge and needle counts were correct x2. The patient tolerated the procedure well. There were no apparent complications. They were carefully transferred to the hospital bed and taken to the postanesthesia care unit in satisfactory condition. PLAN: The patient will be mobilized with physical therapy. Aspirin will be used for DVT prophylaxis. They will be discharged to home once medically appropriate.
--- NOTE | 2023-07-01 11:31 | P.ANES_ITS ---
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
--- NOTE | 2023-07-01 11:37 | W.ANESCHARGE ---
Anesthesia Charges Start Date/Time Anesthesia Start Date: 07/01/23 Anesthesia Start Time: 09:09 Stop Date/Time Anesthesia Stop Date: 07/01/23 Anesthesia Stop Time: 11:31 Summary Extremes of Age - Over 70 or under 1: MDA
--- NOTE | 2023-07-01 11:39 | W.PM.NB ---
Nerve Block Nerve Block Time Seen by Provider: 08:22 Date Seen: 07/01/23 Type of block requested by surgeon for post-operative analgesia: adductor canal Side: left Time out performed: Yes Verification of patient name: Yes Verification of date of : Yes Site marking: site marked Name of person performing procedure: Sherman Continuous monitoring Was continuous monitoring of O2 sat, B/P, property assessment monitor, recorded every 15 minutes?: Yes Procedure Checklist: sterile prep, needles and gloves Ultrasound guided. Images saved: Yes Medications given in 5ml increments after negative aspiration: Ropivicaine %: 0.5 mL: 20 Needle gauge: 20 Decadron (mg): 10 Precedex (mcg): 25 Patient tolerated procedure well: Yes Additional comments: Needle noted adjacent to nerve Block Charges Block Charge (with Pro Fee): Femoral Nerve Use of Ultrasound Machine for Block: Yes- US Guidance/pain block
--- NOTE | 2023-07-01 11:40 | W.PM.NB ---
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
[2023-07-01] MEDS: HYDROmorphone 2 MG TABLET PO ×2 (15:01→22:25)
[2023-07-01] MEDS: CEFAZOLIN 2 GM in 0.9 % SODIUM CHLORIDE Mini-bag 100 ML IVPB (15:01)
--- NOTE | 2023-07-01 15:01 | PM.IMCN1 ---
Date of Consult Consult date: 07/01/23 Primary Care Provider: Vicki Yanez MD Consult Narrative Narrative: HOSPITALIST CONSULT Procedure: NAME OF OPERATION: Left total knee arthroplasty SURGEON: Myron Samayoa MD ANESTHESIA: Spinal ESTIMATED BLOOD LOSS: 0 mL The hospital medicine team was asked by the orthopedic surgery team to manage the patient's type 2 DM, hypertension, GERD, obesity. There have been no perioperative complications. Updated and reviewed the active medical problems, past medical history, past surgical history, social history, allergies and medications in our electronic EMR. -A1C 7.9 on glipizide monotherapy - HTN managed with losartan 100mg daily and HCTZ 25mg daily reviewed pre-op instructions given to patient: Hold your oral diabetes medication(s) the morning of the procedure. Hold Losartan (Cozaar)?the evening before and/or morning of the procedure. Continue taking Atenolol (Tenormin); be sure to take the evening before and/or morning of the procedure. Hold Hydrochlorothiazide?on the morning of procedure. Hold Aspirin for 7 days prior to procedure Hold?Naproxen (Aleve)?for 4 days prior to the procedure. Take your other medications as usual prior to the procedure Okay to take Acetaminophen (Tylenol) up until the procedure PHYSICAL EXAM: CODE STATUS: FULL CODE CONSTITUTIONAL: Conversive, good historian. A/O. Knows setting and context. VITAL SIGNS: see record. HEENT: Normocephalic, atraumatic. PERRL, EOMI, conjunctivae pink, no scleral icterus. Ears and nose externally normal. Pharynx normal. NECK: No JVD. No carotid bruit, no thyromegaly, no adenopathy. CHEST: Clear to auscultation bilaterally HEART: S1 and S2 normal. ABDOMEN: Flat, soft, nontender. Normal bowel sounds. Moderately obese. EXTREMITIES: No edema. MUSCULOSKELETAL: left knee SDI, dry. NEURO: Cranial nerves intact. Mentation normal. Normal affect. SKIN: No rashes, petechiae, concerning changes PSYCHIATRIC: Mentation normal. INVESTIGATIONS: EMR Reviewed; Pre-OP Reviewed DISPOSITION: DVT: Agree with Ortho team decision GI: PO intake [facility] Medical History (Updated 07/01/23 @ 15:13 by Kiley Elizondo MD) Endometrial polyp ?N84.0 - Polyp of corpus uteri (ICD-10) GERD (gastroesophageal reflux disease) ?K21.9 - Gastro-esophageal reflux disease without esophagitis (ICD-10) Hypertension ?I10 - Essential (primary) hypertension (ICD-10) Recurrent kidney stones ?N20.0 - Calculus of kidney (ICD-10) Breast cancer ?C50.919 - Malignant neoplasm of unspecified site of unspecified female breast (ICD-10) Type 2 diabetes mellitus ?E11.9 - Type 2 diabetes mellitus without complications (ICD-10) Surgical History (Updated 07/01/23 @ 15:12 by Kiley Elizondo MD) Status post right knee replacement (11/12/22) ?Z96.651 - Presence of right artificial knee joint (ICD-10) History of arthroplasty of right knee (11/12/22) ?Z96.651 - Presence of right artificial knee joint (ICD-10) H/O colonoscopy ?Z98.890 - Other specified postprocedural states (ICD-10) History of section ?Z98.891 - History of uterine scar from previous surgery (ICD-10) Status post laparotomy with lysis of adhesions ?Z98.890 - Other specified postprocedural states (ICD-10) Status post cystoscopy with ureteral stent placement ?Z96.0 - Presence of urogenital implants (ICD-10) History of ureteroscopy ?Z98.890 - Other specified postprocedural states (ICD-10) History of lithotripsy ?Z98.890 - Other specified postprocedural states (ICD-10) History of cholecystectomy ?Z90.49 - Acquired absence of other specified parts of digestive tract (ICD-10) H/O bilateral mastectomy ?Z90.13 - Acquired absence of bilateral breasts and nipples (ICD-10) H/O total hysterectomy with bilateral salpingo-oophorectomy (BSO) ?Z90.710 - Acquired absence of both cervix and uterus (ICD-10) ?Z90.722 - Acquired absence of ovaries, bilateral (ICD-10) ?Z90.79 - Acquired absence of other genital organ(s) (ICD-10) History of appendectomy ?Z90.49 - Acquired absence of other specified parts of digestive tract (ICD-10) History of arthroscopy of right shoulder (~2014) ?Z98.890 - Other specified postprocedural states (ICD-10) Family History Mother Breast cancer Diabetes Osteoarthritis Sister Breast cancer Osteoarthritis Lung cancer Maternal Grandmother Breast cancer Brother Osteoarthritis ETOH abuse Social History (Reviewed 05/26/23 @ 09:05 by Treasure Smalls ~ [facility], [facility]) Narrative: to Alexis. 1 daughter. 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 Designates , Alexis, as POA for health. Full resuscitation in event of cardiopulmonary demise. PCP, Dr. Vicki Yanez. Highest level of school completed/degree received: don't know Smoking Status: Never smoker Do you use any of these nicotine containing products: None Second hand tobacco smoke exposure: No How often do you have a drink containing alcohol: never AUDIT-C Alcohol total score: 0 Non-prescribed substance use: denies use Caffeine: No Are you now , , , , never or living with a partner: Social isolation score (0-1 are the most socially isolated patients): 1 Meds Home Medications and Allergies Home Medications Medication Instructions Recorded Confirmed Type atenolol 50 mg tablet 50 mg PO DAILY 09/30/22 07/01/23 History hydrochlorothiazide 25 mg tablet 25 mg PO DAILY 09/30/22 07/01/23 History losartan 100 mg tablet 100 mg PO DAILY 09/30/22 07/01/23 History omeprazole 20 mg capsule,delayed 20 mg PO DAILY 09/30/22 07/01/23 History release glipizide 10 mg tablet, extended 10 mg PO DAILY 11/12/22 07/01/23 History release 24 hr multivitamin (Daily Multi-Vitamin 1 tab PO DAILY 11/12/22 07/01/23 History tablet) magnesium glycinate 200 mg PO DAILY 05/26/23 07/01/23 History amoxicillin 500 mg capsule 2,000 mg PO ONCE PRN 07/01/23 07/01/23 History naproxen sodium 220 mg tablet 220 mg PO BID PRN 07/01/23 07/01/23 History (Aleve) Allergies Allergy/AdvReac Type Severity Reaction Status Date / Time Sulfa (Sulfonamide Allergy Mild Rash Verified 07/01/23 07:34 Antibiotics) acetaminophen [From Percocet] Allergy Confusion Verified 07/01/23 07:34 metformin Allergy Verified 07/01/23 07:34 nickel Allergy Rash Verified 07/01/23 07:34 oxycodone [From Percocet] Allergy Confusion Verified 07/01/23 07:34 Exam Const: Vital Signs, click to edit/add: Vital Signs - 24 hr 07/01/23 07:36 07/01/23 08:15 07/01/23 08:20 Temperature 97.8 F Pulse Rate 73 75 75 Respiratory Rate 18 18 18 Blood Pressure 153/77 H 170/92 H 164/80 H Pulse Oximetry 95 98 98 Oxygen Delivery Me thod Room Air Nasal Cannula Nasal Cannula Oxygen Flow Rate 2 2 07/01/23 11:26 07/01/23 11:30 07/01/23 11:35 Temperature 97.3 F L Pulse Rate 74 71 66 Respiratory Rate 16 16 16 Blood Pressure 132/64 128/70 133/74 Pulse Oximetry 93 92 94 Oxygen Delivery Me thod Room Air Room Air Room Air Oxygen Flow Rate 0 0 07/01/23 11:40 07/01/23 11:45 07/01/23 11:50 Temperature 97.1 F L Pulse Rate 66 67 62 Respiratory Rate 16 16 16 Blood Pressure 131/73 139/71 148/74 H Pulse Oximetry 91 93 92 Oxygen Delivery Me thod Room Air Room Air Room Air Oxygen Flow Rate 0 0 0 Assessment and Plan Assessment and plan (1) Status post left knee replacement: Problem comment: 07/01/23 - Dr. Samayoa [facility] medicine team is happy to follow the patient through to discharge. There have been no perioperative concerns or complications. I will hold her anti-hyperglycemic medication and have a sliding scale with Accu-Cheks in place. I will put parameters on her hypertension meds. I expect a routine postoperative course and discharge in the morning. Status: Acute (2) Hypertension: Problem comment: 2 med: losartan and HCTZ hold HCTZ in am, losartan with parameters in the morning. Status: Acute (3) Recurrent kidney stones: Problem comment: 100+ stones over her lifetime. Recurrent calcium oxalate stones. Status: Acute (4) GERD (gastroesophageal reflux disease): Status: Acute (5) Type 2 diabetes mellitus: Problem comment: A1C 7.8 06/19, glipizide monotherapy (on hold). SSI and accuchecks ordered. Status: Acute
[2023-07-01] MEDS: LACTATED RINGERS 1000 ML 1,000 ML 75 ML IV (17:14)
[2023-07-01] MEDS: INSULIN ASPART 100 UNIT/ML SUBCUT ×2 (18:10→20:54)
--- NOTE | 2023-07-01 20:31 | PC.NURSE ---
shift note: pt to floor from PACU @ 1205. Full sensation/movement returned bilat l/e @ 1500. Drsg to lt knee c.d.i. cryo cuff in place. PP+ bilat. LS clr. pt using IS indept. post op protocol initiated. IV patent
[2023-07-01] MEDS: ASPIRIN 81 MG TABLET EC PO (20:42)
[2023-07-01] MEDS: atenoloL 50 MG TABLET PO (20:43)
[2023-07-01] MEDS: SENNOSIDES 1 TAB TABLET 2 TAB PO (20:43)
--- NOTE | 2023-07-01 23:35 | PC.NURSE ---
End of shift note [id number]: Pt alert & oriented x 4 and able to make needs known. Pt SL due to adequate po intake. She has been continent of bladder. 4/10 pain to L knee controlled with cryo cuff, rest, repositioning and PRN Dilaudid. LS clear to all lobes bilaterally & bowel sounds active x 4. Blood glucose of 343 at HS with Novolog SS administered per order and po water encouraged. Dressing to anterior L knee noted to be C/D/I. RICKI stockings and plexi pulses in place bilaterally. VSS and pt has been afebrile.
[2023-07-02] MEDS: CEFAZOLIN 2 GM in 0.9 % SODIUM CHLORIDE Mini-bag 100 ML IVPB (00:03)
[2023-07-02 03:00] VITALS: BP 124/67; PULSE 75; RESP 17; TEMP 36.8; O2SAT 92
[2023-07-02 06:18] LABS: Basophils Percent Auto 0.1 % (0.0-3.0); Hematocrit 34.8 % (33.0-51.0); Hemoglobin* 11.6 gm/dL (12.0-16.0); Immature Granulocytes Pct Auto 0.2 %; Lymphocytes Percent Auto 11.5 % (20-44); Mean Corpuscular HGB Conc 33 gm/dL (32-36); Mean Corpuscular Hemoglobin 30 pg (26-34); Mean Corpuscular Volume 91 fL (80-100); Monocytes Percent Auto 12.3 % (0.0-11.0); Neutrophils Percent Auto 75.9 % (42.0-72.0); Platelet Count* 226 K/uL (140-440); RDW Coefficient of Variation % 11.9 % (11.5-15.5); Red Blood Count 3.81 m/uL (4.00-5.20); White Blood Count* 11.08 K/uL (4.50-11.00)
[2023-07-02 06:25] LABS: Sodium* 148 mmol/L (135-149)
[2023-07-02 06:26] LABS: Potassium* 4.1 mmol/L (3.6-5.1)
[2023-07-02 06:29] LABS: Blood Urea Nitrogen* 27 mg/dL (7-30); Creatinine* 0.7 mg/dL (0.5-1.5); Est. Creatinine Clearance* 41.97; Estimated Glomerular Filt Rate 90 ml/min
[2023-07-02 06:33] LABS: INR 1.05 (0.91-1.10); Prothrombin Time 14.4 Seconds
[2023-07-02] MEDS: OMEPRAZOLE 20 MG CAPSULE DR PO (06:34)
[2023-07-02 07:00] VITALS: BP 144/72; PULSE 78; RESP 16; O2SAT 95
[2023-07-02 07:27] LABS: Slide Review Reflex Yes
[2023-07-02 07:28] LABS: Slide Review Acceptable Review (Acceptable)
--- NOTE | 2023-07-02 07:53 | PC.NURSE ---
Patient pleasant, alert and oriented. Dressing to left knee clean, dry and intact. Cryocuff applied. Denied pain. No signs of hyperglycemia.?
[2023-07-02] MEDS: SENNOSIDES 1 TAB TABLET 2 TAB PO (08:18)
[2023-07-02] MEDS: ASPIRIN 81 MG TABLET EC PO (08:19)
[2023-07-02] MEDS: LOSARTAN POTASSIUM 50 MG TABLET 100 MG PO (08:19)
[2023-07-02] MEDS: HYDROmorphone 2 MG TABLET PO (08:19)
[2023-07-02] MEDS: glipiZIDE XL 5 MG TAB 10 MG PO (09:42)
--- NOTE | 2023-07-02 09:49 | PM.ORPN ---
Subjective Subjective Time Seen by Provider: 08:30 Date Seen: 07/02/23 Principal diagnosis: Day 1 s/p left total knee arthroplasty Interval history: Gina is doing well and resting comfortably in her recliner. C/o mild-moderate diffuse left hip pain, ranks 2-3/10 currently. Pain is well managed with hydromorphone, acetaminophen and icing PRN. Patient has an adverse reaction to oxycodone - confusion. Last night patient reports chest discomfort and sore muscles full body while glucose measured approx. 340 (however I am unable to verify this in her chart). Patient states these symptoms resolved after receiving insulin. Admits to postop. Outpatient PT scheduled to begin 07/04 at [facility]. Ortho Exam Narrative Exam Narrative: Incision/Dressing: Dressing appears clean and dry. No drainage present. Mepilex intact. Left knee appears moderately swollen but supple with no obvious erythema, fluctuance or excessive warmth. No ecchymosis or erythematous streaking. Warmth around the wound is appropriate. Ice is being utilized as needed. CMS: Intact distally with 2+ Dorsalis pedis and Posterior Tibial pulses. 5/5 motor strength dorsal and plantar flexion. Confirmed sensation distally. Intact straight leg raise. Calf: Bilateral calves are supple, with no swelling, pain, tenderness, erythema, discoloration or coolness to the touch. Constitutional: Patient is alert and oriented x3. Patient is in no acute distress and converses without labored breathing. Patient is able to make decisions and demonstrates good insight. Patient is pleasant and cooperative. Affect is full range and appropriate for the circumstances. Const Vital Signs, click to edit/add: Vital Signs - 24 hr 07/01/23 11:26 07/01/23 11:30 07/01/23 11:35 Temperature 97.3 F L Pulse Rate 74 71 66 Pulse Rate [Pulse Oximeter] Respiratory Rate 16 16 16 Blood Pressure 132/64 128/70 133/74 Blood Pressure [Right Arm] Pulse Oximetry 93 92 94 Oxygen Delivery Method Room Air Room Air Room Air Oxygen Flow Rate 0 0 07/01/23 11:40 07/01/23 11:45 07/01/23 11:50 Temperature 97.1 F L Pulse Rate 66 67 62 Pulse Rate [Pulse Oximeter] Respiratory Rate 16 16 16 Blood Pressure 131/73 139/71 148/74 H Blood Pressure [Right Arm] Pulse Oximetry 91 93 92 Oxygen Delivery Method Room Air Room Air Room Air Oxygen Flow Rate 0 0 0 07/01/23 12:05 07/01/23 12:05 07/01/23 12:09 Temperature 96.5 F L 96.5 F L 96.5 F L Pulse Rate 67 67 Pulse Rate [Pulse Oximeter] 67 Respiratory Rate 16 16 16 Blood Pressure 140/77 H 140/77 H Blood Pressure [Right Arm] 140/77 H Pulse Oximetry 94 94 94 Oxygen Delivery Method Room Air Room Air Room Air Oxygen Flow Rate 07/01/23 12:55 07/01/23 13:45 07/01/23 14:30 Temperature 96.9 F L 96.9 F L 96.9 F L Pulse Rate 67 65 76 Pulse Rate [Pulse Oximeter] Respiratory Rate 16 16 16 Blood Pressure 134/79 141/64 H 137/74 Blood Pressure [Right Arm] Pulse Oximetry 96 92 92 Oxygen Delivery Method Room Air Room Air Room Air Oxygen Flow Rate 0 0 0 07/01/23 14:45 07/01/23 15:00 07/01/23 16:00 Temperature 97.7 F 98.1 F 98 F Pulse Rate 77 84 84 Pulse Rate [Pulse Oximeter] Respiratory Rate 16 16 18 Blood Pressure 136/63 146/71 H 139/70 Blood Pressure [Right Arm] Pulse Oximetry 92 92 94 Oxygen Delivery Method Room Air Room Air Room Air Oxygen Flow Rate 0 0 0 07/01/23 17:00 07/01/23 18:00 07/01/23 20:12 Temperature 98 F 98.1 F 98.1 F Pulse Rate 93 92 Pulse Rate [Pulse Oximeter] 86 Respiratory Rate 18 18 16 Blood Pressure 164/78 H 155/93 H Blood Pressure [Right Arm] 132/71 Pulse Oximetry 99 95 92 Oxygen Delivery Method Room Air Room Air Room Air Oxygen Flow Rate 0 0 07/01/23 23:00 07/02/23 03:00 07/02/23 07:00 Temperature 98.4 F 98.2 F Pulse Rate Pulse Rate [Pulse Oximeter] 87 75 78 Respiratory Rate 18 17 16 Blood Pressure Blood Pressure [Right Arm] 124/66 124/67 144/72 H Pulse Oximetry 93 92 95 Oxygen Delivery Method Room Air Room Air Room Air Oxygen Flow Rate Assessment and Plan Assessment and plan (1) Status post left knee replacement: Problem details: 07/01/23 - Dr. Samayoa Status: Acute Assessment and Plan: - Complete 23 hour perioperative antibiotics. - PT/OT consults for education and assistance. Outpatient PT scheduled to begin 07/04 at [facility]. - Weight bear as tolerated with a walker for assistance. - Prescribed analgesics as needed. Patient is content with current narcotic medications. Minimize narcotic pain medication use; wean off and discontinue as soon as possible. - DVT prophylaxis: aspirin 81 ng BID x 30 days. Also bilateral knee high Ken stockings (x 1 month), frequent ambulation and ankle pumps when sedentary. - Patient will closely monitor her glucose postoperatively and take her glipizide as directed. Patient will notify her PCP with any concerns regarding hyperglycemia. - Social consult for discharge planning. - Anticipate patient will be discharged to home this afternoon if the patient remains medically stable, pain is controlled and is safe with ambulation. - Return to clinic in 1 week for a wound check. Mepilex dressing will be removed at this appointment. Remove sooner if dressing becomes saturated. - Return to clinic in [address] Samayoa. - Phone Orthopedics with any questions or concerns. [phone]
--- NOTE | 2023-07-02 10:08 | PC.SOCIAL ---
Discharge planning: pulley worker met with pt to discuss discharge planning. Pt is looking forward to going home. Pt has support from her and daughter at home. Social work to follow-up if needed.
--- NOTE | 2023-07-02 12:26 | PC.NURSE ---
Discahrge note: The patient discharged home via wheelchair. All discharge instructions were reviewed with the patient and her daughter. All questions were answered. The patient reported more stiffness
--- NOTE | 2023-07-02 12:27 | PC.NURSE ---
Discharge note: The patient discharged home with her daughter this AM. All discharge instructions were reviewed with both of them. All questions were answered. The patient reported mild pain this morning... but stated it was more of a stiffness than any pain... I educated her on the importance of ambulation to help prevent this stiffness progressing. Hortensia OORURKE BSN
== END 2023-07-02 11:55 | disposition home or self-care (01) ==
LOC: OR 07:00 → MEDSURG 07:01
PROVIDERS: PCP Internal Medicine; Visit Provider Orthopaedic Surgery
PROC: (CPT 27447; principal; 2023-07-01 09:00)
DX: M17.12 Unilateral primary osteoarthritis, left knee (principal); G89.18 Other acute postprocedural pain; M25.552 Pain in left hip; E11.9 Type 2 diabetes mellitus without complications; I10 Essential (primary) hypertension; K21.9 Gastro-esophageal reflux disease without esophagitis; E66.9 Obesity, unspecified; Z87.442 Personal history of urinary calculi
CPT/HCPCS: 27447; 01402; 36415; 64447; 64454; 73560; 76942; 82565; 82962; 84132; 84295; 84520; 85025; 85610; 97110; 97116; 97161; 97165; 97530; 97535; 99100; A9270; C1776; J0690; J1100; J2250; J2405; J2704; J3010; J7120